=== PATIENT | female | born 1985 | race Caucasian/White ===

== ENCOUNTER 2023-01-14 10:11 | Outpatient (RCR) | payer OTHER, SELFPAY ==
[2022-12-26 08:12] VITALS: BP 114/72; PULSE 70
[2023-01-01 09:06] VITALS: BP 117/68; PULSE 84
[2023-01-08 16:37] VITALS: BP 121/77; PULSE 64
[2023-01-14 10:44] LABS: Creatinine Urine 304.5 mg/dL; Total Protein Urine Random 37 mg/dL; Ur Ttl Prot Creatinine Ratio 0.12 mg/mg (0-0.20)
[2023-01-14 10:45] LABS: Alanine Aminotransferase 20 U/L (6-35); Alkaline Phosphatase 147 U/L (38-126); Anion Gap 10 mmol/L (8-16); Aspartate Amino Transferase 29 U/L (14-36); Bilirubin,Total 0.6 mg/dL (0.2-1.3); Blood Urea Nitrogen 8 mg/dL (7-17); Calcium 9.6 mg/dL (8.4-10.2); Carbon Dioxide 23 mmol/L (22-30); Chloride 101 mmol/L (98-107); Estimated Glomerular Filt Rate > 60; Glucose 116 mg/dL (65-110); Potassium 3.9 mmol/L (3.4-5.0); Sodium 134 mmol/L (137-145); Uric Acid 5.8 mg/dL (2.5-7.5)
[2023-01-14 10:48] LABS: Appearance Urine Cloudy (Clear); Bacteria Urine Rare /hpf; Bilirubin Urine 1+ (Negative); Blood Urine Negative (Negative); Color Urine Dark Yellow (Yellow); Glucose Urine UA Negative (Negative); Ketones Urine 2+ mg/dL (Negative); Leukocyte Esterase Ur 1+ LEU/UL (NEGATIVE); Need Manual Microscopic Need Manual; Nitrate Urine Negative (Negative); Protein Urine 2+ mg/dL (Negative); RBC Urine 0-2 /hpf (0-2); Specific Grav Ur 1.024 (1.001-1.035); Squamous Epithelial Cell Urine Few /hpf (Few); pH Urine 6.5 (5.0-9.0)
[2023-01-14 10:51] VITALS: BP 126/89; PULSE 56
[2023-01-14 10:53] LABS: Basophils Percent Auto 0.4 % (0.2-1.2); Eosinophils Absolute Auto 0.1 K/mm3 (0-0.3); Eosinophils Percent Auto 0.5 % (0-4.4); Hematocrit 40.3 % (37.0-47.0); Hemoglobin 13.2 g/dL (12.0-15.0); Immature Granulocyte Absolute 0.02 K/mm3 (0.00-0.031); Immature Granulocyte Percent A 0.2 % (0-0.5); Lymphocytes Percent Auto 22.6 % (18.3-44.2); Mean Corpuscular HGB Conc 32.8 g/dl (32-36); Mean Corpuscular Hemoglobin 29.2 pg (26-34); Mean Corpuscular Volume 89.2 fl (80-100); Mean Platelet Volume 10.7 fl (7.4-10.4); Monocytes Absolute Auto 0.6 K/mm3 (0.1-0.6); Monocytes Percent Auto 5.9 % (2.6-8.5); Neutrophils Absolute Auto 7.2 K/mm3 (1.3-6.7); Neutrophils Percent Auto 70.4 % (45.5-73.1); Platelet Count Result 233 k/mm3 (150-375); Red Blood Count 4.52 M/mm3 (4.2-5.4); White Blood Count 10.2 K/mm3 (4.5-10.0)
[2023-01-14 11:10] LABS: WBC Urine 0-5 /hpf (0-3)
[2023-01-14 11:11] LABS: Add Urine Microscopic? YES
--- NOTE | 2023-01-14 11:14 | PC.NURSE ---
Dr. Roxane Collins updated with pts labs and blood pressures. okay with pt going home and seeing her in the office next week.
--- NOTE | 2023-01-14 11:16 | PC.NURSE ---
pt seen in the office today. Pt denies headaches, no blurred visions and no pain at this time. Pt reports her blood pressure was elevated in the office but better when he rechecked.
== END 2023-03-26 23:59 | disposition home or self-care (01) ==
LOC: ANHOBOP 10:11
PROVIDERS: Visit Provider Obstetrics & Gynecology
DX: O24.419 Gestational diabetes mellitus in pregnancy, unspecified control (principal); Z3A.34 34 weeks gestation of pregnancy
CPT/HCPCS: 36415; 59025; 80053; 81001; 82570; 84156; 84550; 85025; 87086

== ENCOUNTER 2023-01-21 05:10 | Inpatient (IN) | payer OTHER, SELFPAY ==
[2023-01-21] VITALS (136 sets, daily range): BP systolic 108–155; BP diastolic 59–105; PULSE 54–120; RESP 16–18; TEMP 36.2–36.6; O2SAT 79–100; BMI 35.7
--- NOTE | 2023-01-21 05:44 | LDADM ---
This patient, Lauren Eastman, was admitted to Labor/Delivery/Recovery 105 on 01/21/23 at 05:10. Plans for labor, pain management and were discussed with patient. Patient/family oriented to hospital policies and general routines including ID bracelet, bed and alarms, visiting hours, pain management, procedures, bathroom and other care routines, personal items, smoking policy, room service/diet and guest tray routines, security routines, and visiting hours. Patient/Family are encouraged to report perceived risks to care and to ask questions if they do not understand what they are told or what they should do. See OBIX for further documentation.
[2023-01-21 05:54] LABS: Basophils Absolute Auto 0.1 K/mm3 (0.0-0.1); Basophils Percent Auto 0.5 % (0.2-1.2); Eosinophils Absolute Auto 0.1 K/mm3 (0-0.3); Hematocrit 37.9 % (37.0-47.0); Hemoglobin 12.6 g/dL (12.0-15.0); Immature Granulocyte Absolute 0.02 K/mm3 (0.00-0.031); Immature Granulocyte Percent A 0.2 % (0-0.5); Lymphocytes Percent Auto 24.1 % (18.3-44.2); Mean Corpuscular HGB Conc 33.2 g/dl (32-36); Mean Corpuscular Hemoglobin 29.2 pg (26-34); Mean Corpuscular Volume 87.9 fl (80-100); Mean Platelet Volume 10.2 fl (7.4-10.4); Monocytes Absolute Auto 0.6 K/mm3 (0.1-0.6); Monocytes Percent Auto 6.4 % (2.6-8.5); Neutrophils Absolute Auto 6.5 K/mm3 (1.3-6.7); Neutrophils Percent Auto 67.8 % (45.5-73.1); Platelet Count Result 229 k/mm3 (150-375); Red Blood Count 4.31 M/mm3 (4.2-5.4); Red Cell Distribution Width 12.7 % (11.5-14.5); White Blood Count 9.5 K/mm3 (4.5-10.0)
--- NOTE | 2023-01-21 05:59 | WPDANESEPP ---
Anes - Eval Pre Procedure Procedure: labor epidural Date/Time: 01/21/23 05:59 Surgeon: nisha Preop Diagnosis: pain during labor Pre Op Diagnosis: IOL Patient Data Age: 37 Gender: F Height: 1.75 m Weight: 109.769 kg Last Vital Signs Pulse 65 01/21/23 05:46 BP 129/85 01/21/23 05:46 O2 Del Method Room Air 01/21/23 05:44 Allergies Allergy/AdvReac Type Severity Reaction Status Date / Time No Known Allergies Allergy Verified 01/08/23 16:00 Home Medications Medication Instructions Recorded Confirmed Type glyburide 5 mg tablet 5 mg PO QACDINNER 01/01/23 01/08/23 History omega 6-nwc-azu-fish oil 300 1 cap PO DAILY 01/01/23 01/08/23 History mg-1,000 mg capsule (Fish Oil) vit no.95-ferrous 1 tablet PO DAILY 01/01/23 01/08/23 History fumarate 28 mg-folic acid 800 mcg tablet () Laboratory Tests 01/21/23 05:40 WBC 9.5 K/mm3 (4.5-10.0) RBC 4.31 M/mm3 (4.2-5.4) Hgb 12.6 g/dL (12.0-15.0) Hct 37.9 % (37.0-47.0) MCV 87.9 fl (80-100) MCH 29.2 pg (26-34) MCHC 33.2 g/dl (32-36) RDW 12.7 % (11.5-14.5) Plt Count 229 k/mm3 (150-375) MPV 10.2 fl (7.4-10.4) Immature Gran % (Auto) 0.2 % (0-0.5) Neut % (Auto) 67.8 % (45.5-73.1) Lymph % (Auto) 24.1 % (18.3-44.2) [place] % (Auto) 6.4 % (2.6-8.5) Eos % (Auto) 1.0 % (0-4.4) Baso % (Auto) 0.5 % (0.2-1.2) Lymph # (Auto) 2.30 K/mm3 (0.9-3.2) [place] # (Auto) 0.6 K/mm3 (0.1-0.6) Eos # (Auto) 0.1 K/mm3 (0-0.3) Baso # (Auto) 0.1 K/mm3 (0.0-0.1) Abs Immat Gran (auto) 0.02 K/mm3 (0.00-0.031) Absolute Neuts (auto) 6.5 K/mm3 (1.3-6.7) Absolute Nucleated RBC 0.0 K/mm3 (0.0-0.012) Nucleated RBC % 0.0 % (0.0-0.2) Sodium Pending Potassium Pending Chloride Pending Carbon Dioxide Pending Anion Gap Pending BUN Pending Creatinine Pending Estim Creat Clear Calc Pending Estimated GFR Pending Glucose Pending Calcium Pending Total Bilirubin Pending AST Pending ALT Pending Alkaline Phosphatase Pending Total Protein Pending Albumin Pending RPR Pending Patient hx anesthesia problems: none Family hx anesthesia problems: none Results Review: All pre-operative results and documents have been reviewed as part of the pre-operative evaluation. [facility] Past Medical History Medical History (Updated 01/21/23 @ 06:00 by Karen Graham CRNA) Diabetes IUP (intrauterine ), incidental Surgical History Surgical History S/P ACL surgery 2005 Family History Family History Father Alcoholism Hypertension Heart disease Grandparent Diabetes mellitus Lung cancer Social History Social History Smoking status: Former smoker Tobacco type: cigarettes Second hand tobacco smoke exposure: No Alcohol intake: current Substance use: never Lack of Transportation: No Lack of Food: Never True Current Housing: I Have Housing Concerned About Future Housing: No Difficulty Paying Gas/Electric Bills: No Difficulty Paying for Meds: No Currently Unemployed: No Education: Master's Degree or Higher Difficulty w/ Childcare or Family Care: No Spiritual care concerns: No Exam Day of Procedure 01/21/23 05:59
[2023-01-21] MEDS: LACTATED RINGERS 1,000 ML 125 ML IV CONT ×2 (06:05→07:54)
[2023-01-21] MEDS: OXYTOCIN 30 UNITS/NS 500 ML 30 UNITS/500 ML BAG 6 UNITS IV CONT (06:06)
[2023-01-21 06:10] LABS: Alanine Aminotransferase 23 U/L (6-35); Albumin Level 3.6 g/dL (3.5-5.1); Alkaline Phosphatase 145 U/L (38-126); Anion Gap 9 mmol/L (8-16); Aspartate Amino Transferase 36 U/L (14-36); Bilirubin,Total 0.4 mg/dL (0.2-1.3); Blood Urea Nitrogen 8 mg/dL (7-17); Carbon Dioxide 20 mmol/L (22-30); Chloride 105 mmol/L (98-107); Estimated CRCL calculation 147 ml/min; Estimated Glomerular Filt Rate > 60; Glucose 126 mg/dL (65-110); Potassium 3.8 mmol/L (3.4-5.0); Sodium 134 mmol/L (137-145)
--- NOTE | 2023-01-21 06:34 | PM.IMHP ---
H&P: HPI History of Present Illness Date/Time: 01/21/23 06:34 Chief Complaint: Gestational hypertension at term Narrative: 37-year-old 1 para 0 with a last menstrual period of 04/19/2022, EDC of 02/03/2023, presents at 38 weeks gestation for induction of labor secondary to elevated blood pressures. Her was complicated by an abnormal 1hour GTT and 2/4 abnormals on her 3 hour. Her sugars have been well controlled her blood pressure is elevated and PIH labs to be drawn she denies headache or blurred vision PMFSH Past Medical History Medical History Diabetes IUP (intrauterine ), incidental Surgical History Surgical History S/P ACL surgery 2006 Family History Family History Father Alcoholism Hypertension Heart disease Grandparent Diabetes mellitus Lung cancer Social History Social History Smoking status: Former smoker Tobacco type: cigarettes Second hand tobacco smoke exposure: No Alcohol intake: current Substance use: never Lack of Transportation: No Lack of Food: Never True Current Housing: I Have Housing Concerned About Future Housing: No Difficulty Paying Gas/Electric Bills: No Difficulty Paying for Meds: No Currently Unemployed: No Education: Master's Degree or Higher Difficulty w/ Childcare or Family Care: No Spiritual care concerns: No Meds Home Medications and Allergies Home Medications Medication Instructions Recorded Confirmed Type glyburide 5 mg tablet 5 mg PO QACDINNER 01/01/23 01/08/23 History omega 2-uee-ski-fish oil 300 1 cap PO DAILY 01/01/23 01/08/23 History mg-1,000 mg capsule (Fish Oil) vit no.95-ferrous 1 tablet PO DAILY 01/01/23 01/08/23 History fumarate 28 mg-folic acid 800 mcg tablet () Allergies Allergy/AdvReac Type Severity Reaction Status Date / Time No Known Allergies Allergy Verified 01/08/23 16:00 Vital Signs Vital Signs - 24 hr 01/21/23 05:39 01/21/23 05:46 01/21/23 06:01 Temperature 97.3 F L Pulse Rate 69 65 67 Respiratory Rate 16 Blood Pressure 132/78 129/85 136/81 Pulse Oximetry Oxygen Delivery 01/21/23 06:16 01/21/23 06:25 01/21/23 06:30 Temperature Pulse Rate 62 Respiratory Rate Blood Pressure 143/76 H Pulse Oximetry 97 97 Oxygen Delivery 01/21/23 06:31 01/21/23 05:44 Temperature Pulse Rate 69 Respiratory Rate Blood Pressure 149/90 H Pulse Oximetry Oxygen Delivery Room Air Exam Const: General: cooperative, healthy appearing and comfortable Nutritional Appearance: average body habitus Orientation/consciousness: oriented to person, oriented to place and oriented to time HENMT: Head: normal to inspection Resp: Effort & Inspection: normal respiratory effort Cardio: Rate: regular rate Rhythm: regular rhythm Heart sounds: S1 normal heart sound present and S2 normal heart sound present GI: Inspection: normal to inspection ( gravid soft uterus) : External Female Exam: normal external appearance Speculum Exam - Vagina: normal appearance of the vagina Speculum Exam - Cervix: normal appearance of the cervix ( cervix 3.5/80/1. AROM clear. FHTs reassuring. Internals placed) H&P: Results Labs Labs: Short CBC 01/21/23 Range/Units 05:40 WBC 9.5 (4.5-10.0) K/mm3 Hgb 12.6 (12.0-15.0) g/dL Hct 37.9 (37.0-47.0) % Plt Count 229 (150-375) k/mm3 BMP 01/21/23 05:40 Sodium 134 L Potassium 3.8 Chloride 105 Carbon Dioxide 20 L BUN 8 Creatinine 0.60 L Glucose 126 H Calcium 9.0 Liver Function 01/21/23 Range/Units 05:40 Total Bilirubin 0.4 (0.2-1.3) mg/dL AST 36 (14-36) U/L ALT 23 (6-35) U/L Alkaline Phosphatase 145 H (38
[2023-01-21 08:46] LABS: Glucose Point of Care 66 mg/dl (65-105)
[2023-01-21 11:15] LABS: Glucose Point of Care 112 mg/dl (65-105)
--- NOTE | 2023-01-21 12:09 | PM.OBPNLAB ---
Pain Control Date/time seen: 01/21/23 12:09 Pain control: tolerating well and epidural Pelvic Exam Dilation (cm): 10 Effacement (%): 100 station: +2 Amniotic membrane status: Leaking
--- NOTE | 2023-01-21 12:42 | PM.OBPRVD ---
OB - Vaginal Delivery Note Procedure Delivery date: 01/21/23 Events: Gestational Hypertension Induction method: AROM Delivery augmentation: Pitocin Delivery monitor: External FHT, Internal FHT and Internal Uterine Route of delivery: Episiotomy description: None Laceration Description: None Quantitative Blood Loss (ml): 60 Anesthesia type: Epidural Disposition: Floor Complications: No immediate complications [place] Baby Date of : 01/21/23 Time of : 12:33 Weeks of gestation at delivery: 38 Infant gender: Male presentation: vertex position: Left Occiput Anterior Placenta delivery description: Spontaneous Cord Vessel Description: 3 Vessels score one minute: 8 score five minutes: 9
--- NOTE | 2023-01-21 12:43 | PM.DS ---
DS: Admitting Diagnosis Discharge Date 01/22/2023 Admitting Diagnosis Term /gestational hypertension DS: Discharge Diagnosis Discharge Diagnosis (1) Gestational diabetes: Code(s): O24.419 - Gestational diabetes mellitus in , unspecified control Status: Acute (2) Gestational hypertension: Code(s): O13.9 - Gestational [-induced] hypertension without significant proteinuria, unspecified trimester Status: Acute (3) Term : Code(s): Z34.90 - Encounter for supervision of normal , unspecified, unspecified trimester Status: Acute DS: Summary Hospital Course Reason for hospitalization: induction of labor at 38 weeks gestation for elevated blood pressures Hospital Course: patient underwent successful induction of labor on 01/21/2023. She had epidural anesthesia. Her hospital course was unremarkable. She remained afebrile. She was up, ambulating, eating regular diet, voiding without difficulty, and generally without complaints. Time Spent with Patient Time attestation: Total time spent providing and/or coordinating discharge services: Exam Const: General: cooperative, healthy appearing and comfortable Nutritional Appearance: average body habitus Orientation/consciousness: oriented to person, oriented to place and oriented to time Resp: Effort & Inspection: normal respiratory effort Cardio: Rate: regular rate Rhythm: regular rhythm Heart sounds: S1 normal heart sound present and S2 normal heart sound present GI: Inspection: normal to inspection DS: Data Data Completed and Pending Labs on day of discharge: Labs from last 24 hours 01/21/23 01/21/23 01/21/23 11:12 08:44 05:40 WBC 9.5 RBC 4.31 Hgb 12.6 Hct 37.9 MCV 87.9 MCH 29.2 MCHC 33.2 RDW 12.7 Plt Count 229 MPV 10.2 Immature Gran % (Auto) 0.2 Neut % (Auto) 67.8 Lymph % (Auto) 24.1 [place] % (Auto) 6.4 Eos % (Auto) 1.0 Baso % (Auto) 0.5 Lymph # (Auto) 2.30 [place] # (Auto) 0.6 Eos # (Auto) 0.1 Baso # (Auto) 0.1 Abs Immat Gran (auto) 0.02 Absolute Neuts (auto) 6.5 Absolute Nucleated RBC 0.0 Nucleated RBC % 0.0 Sodium 134 L Potassium 3.8 Chloride 105 Carbon Dioxide 20 L Anion Gap 9 BUN 8 Creatinine 0.60 L Estim Creat Clear Calc 147 Estimated GFR > 60 Glucose 126 H POC Capillary Glucose 112 H 66 Calcium 9.0 Total Bilirubin 0.4 AST 36 ALT 23 Alkaline Phosphatase 145 H Total Protein 7.0 Albumin 3.6 RPR Pending Blood Type AB Positive Antibody Screen Negative Discharge Plan Discharge Attending physician on discharge: Marc Melo Discharging Clinician: Marc Melo Patient Disposition: Home, Self-Care Activity: may shower and pelvic rest Diet: heart healthy Patient Instructions: Antibiotic Form Stand Alone Forms: General Discharge Information Follow-up/Referrals: Marc Melo MD [Physician] - Discharge Medications: Continued omega 9-axg-url-fish oil [Fish Oil] 300-1,000 mg Capsule 1 cap PO DAILY PNV cmb#95-ferrous fumarate-FA [] 28 mg iron- 800 mcg Tablet 1 tablet PO DAILY Discontinued glyburide 5 mg Tablet 5 mg PO QACDINNER Date of admission: 01/21/23 05:10 Primary Care Provider: PHYSICIAN,GINGER FARMER Admitting Provider: Marc Melo Attending physician on admission: Marc Melo Condition: Stable
[2023-01-21] MEDS: OXYTOCIN 30 UNITS/NS 500 ML 30 UNITS/500 ML BAG 125 UNITS IV CONT (13:05)
[2023-01-21] MEDS: WITCH HAZEL 40 PADS 1 PAD TOPICAL (14:38)
[2023-01-21] MEDS: BENZOCAINE 20% AER SPR (*SP) 56 GM CAN 1 SPRAY TOPICAL (14:38)
--- NOTE | 2023-01-21 15:51 | OBPPTRN ---
1500 Patient transferred to post room #283 via W/C. Support person present. Oriented to unit, room, information board, rooming in, admission packet and security measures. Patient verbalizes understanding.
[2023-01-22 05:04] LABS: Hematocrit 36.1 % (37.0-47.0)
--- NOTE | 2023-01-22 06:36 | PM.OBPNVD ---
OB - PN: Subj Subjective Date/time seen: 01/22/23 06:36 Patient comments: no complaints and pain well controlled baby status: doing well and nursing well OB - PN: Obj Data Labs 01/22/23 03:19 01/21/23 05:40 Labs: Laboratory Results - last 24 hr 01/21/23 01/21/23 01/21/23 05:40 08:44 11:12 Hgb Hct POC Capillary Glucose 66 112 H Blood Type AB Positive Antibody Screen Negative 01/22/23 03:19 Hgb 12.0 Hct 36.1 L POC Capillary Glucose Blood Type Antibody Screen OB - PN A/P Plan day: 1 Plan: routine care, discharge home and follow up 6 weeks Time Spent With Patient Time: Total time spent is greater than 50% in coordination of care (as documented) at patient's floor/unit and/or counseling patient: Time with patient: less than 15 minutes Exam Const: General: cooperative, healthy appearing and comfortable Nutritional Appearance: average body habitus Orientation/consciousness: oriented to person, oriented to place and oriented to time HENMT: Head: normal to inspection Resp: Effort & Inspection: normal respiratory effort Cardio: Rate: regular rate Rhythm: regular rhythm Heart sounds: S1 normal heart sound present and S2 normal heart sound present GI: Inspection: normal to inspection
[2023-01-22 08:00] VITALS: PULSE 67; RESP 20; O2SAT 100
[2023-01-22] MEDS: DOCUSATE SODIUM 100 MG CAPSULE PO (08:14)
[2023-01-22 08:42] VITALS: BP 148/83; PULSE 67; RESP 20; TEMP 36.4; O2SAT 100
--- NOTE | 2023-01-22 08:56 | WPDANLDPN2 ---
Anes-Prog Note L&D Date/Time: 01/22/23 08:56 Comfortable throughout: labor and delivery Neuraxial method: epidural Epidural/Spinal procedure site: clean & non-tender Neuro status: Neuro function grossly intact. Cardiovascular status: normal Respiratory status: normal Airway patency: baseline Mental status: baseline Post-Op hydration status: normal Vital Signs: Last Vital Signs Temp 97.6 F 01/22/23 08:42 Pulse 67 01/22/23 08:42 Resp 20 01/22/23 08:42 BP 148/83 H 01/22/23 08:42 Pulse Ox 100 01/22/23 08:42 O2 Del Method Room Air 01/21/23 15:00 Pain score (VAS): 0 Post-procedural complaints: none Patient feedback: Patient satisfied with anesthetic care.
[2023-01-22 12:56] VITALS: BP 129/80; PULSE 66; RESP 18; TEMP 36.9; O2SAT 99
--- NOTE | 2023-01-22 14:11 | PC.NURSE ---
Patient viewed the discharge video Mother & Baby Care, The First Two Weeks . Patient was given the opportunity and encouraged to ask questions. Patient verbalized understanding of information shared and has been given the mother/baby guide for home reference.
[2023-01-22] MEDS: TETANUS,DIPHTHERIA,AC PERTUSSIS ADULT (0.5 ML) BOOSTRIX IM (14:12)
--- NOTE | 2023-01-22 16:40 | PC.NURSE ---
[id number] Introductions were made and Mother verbalizes she is able to independently latch with appropriate positioning and alignment. She denies any nipple discomfort, is responsively and has educated herself through online classes. is currently meeting outcomes for weight, output, jaundice, blood sugar and feeding frequencies of 8-12 times in 24 hours. Mother declines any additional assistance or education at this time. Mother is encouraged to call for assistance if her infant doesn?t latch, pain with latching, questions or concerns. Mother voiced understanding of information shared along with the mom/baby guide for an additional resource. Reported to the Primary RN.
[2023-01-22 17:18] LABS: Rapid Plasma Reagin Non-Reactive (NonReactive)
== END 2023-01-22 17:05 | disposition home or self-care (01) | DRG 807 ==
LOC: ANHLDR 12:45 → ANHOB2 15:05
PROVIDERS: Admitting Provider Obstetrics & Gynecology; Visit Provider Obstetrics & Gynecology
DX: O13.4 Gestational [pregnancy-induced] hypertension without significant proteinuria, complicating childbirth (principal); Z37.0 Single live birth; Z3A.38 38 weeks gestation of pregnancy; O24.429 Gestational diabetes mellitus in childbirth, unspecified control
CPT/HCPCS: 36415; 80053; 82948; 85014; 85018; 85025; 86592; 86850; 86900; 86901; 90715; A9270; J2590; J2795; J7120

== ENCOUNTER 2023-04-04 16:30 | Emergency (ER) | payer OTHER, SELFPAY ==
[2023-04-04 16:40] VITALS: BP 126/80; PULSE 65; RESP 18; TEMP 36.9; O2SAT 100
--- NOTE | 2023-04-04 16:48 | ED.WOUNDLAC ---
HPI - Wound/Laceration General Chief Complaint: Wound/Laceration Stated Complaint: Left Hand Finger Laceration Time Seen by Provider: 04/04/23 16:45 Source: patient Mode of arrival: ambulatory Limitations: no limitations History of Present Illness HPI narrative: Lauren is a 37-year-old female patient presenting to the clinic today with complaints of a left hand index finger laceration. She reports she cut it on a bread knife approximately 1.5 hours ago. Bleeding is controlled. Tetanus is up-to-date per patient. Patient is currently . Related Data Home Medications Medication Instructions Recorded Confirmed omega 4-orh-tla-fish oil 300 1 cap PO DAILY 01/01/23 01/08/23 mg-1,000 mg capsule (Fish Oil) vit no.95-ferrous 1 tablet PO DAILY 01/01/23 01/08/23 fumarate 28 mg-folic acid 800 mcg tablet () Allergies Allergy/AdvReac Type Severity Reaction Status Date / Time No Known Allergies Allergy Verified 04/04/23 16:33 Review of Systems Review of Systems: Pertinent positives per HPI. Patient denies any fever, chills, rash, headache, visual changes, dizziness, cough, runny nose, sore throat, shortness of breath, chest pain, palpitations, nausea, vomiting, diarrhea, constipation, abdominal pain, or any urinary issues. [facility] Past Medical History Medical History Diabetes IUP (intrauterine ), incidental Surgical History Surgical History S/P ACL surgery 2006 Family History Family History Father Alcoholism Hypertension Heart disease Grandparent Diabetes mellitus Lung cancer Social History Social History Smoking status: Former smoker Tobacco type: cigarettes Second hand tobacco smoke exposure: No Alcohol intake: current Substance use: never Do You Feel Safe in your Home?: Yes Lack of Transportation: No Lack of Food: Never True Current Housing: I Have Housing Concerned About Future Housing: No Difficulty Paying Gas/Electric Bills: No Difficulty Paying for Meds: No Currently Unemployed: No Education: Master's Degree or Higher Difficulty w/ Childcare or Family Care: No Spiritual care concerns: No Comments At the time of my signature, I reviewed and agree with the nursing past medical, surgical, social, and family history. There is no relevant family history pertinent to the patient complaint. Exam Narrative: General: Well-developed, well nourished, in no apparent distress Head: Normocephalic, atraumatic. Cardio: Regular rate and rhythm, s1 and s2 normal, no murmur appreciated. Resp: Clear to auscultation bilaterally, no rhonchi, rales, wheezing or rubs. Integumentary: [place], warm, and dry, 1cm laceration across the lateral/dorsal aspect of the proximal 2nd phalanx on the left hand Course Course Emergency Course: Portions of this record may have been created with voice recognition software. Level of Care: Express Care Visit Vital Signs Vital signs: Vital Signs Temperature 36.9 C 04/04/23 16:40 Pulse Rate 65 04/04/23 16:40 Respiratory Rate 18 04/04/23 16:40 Blood Pressure 126/80 04/04/23 16:40 Pulse Oximetry 100 04/04/23 16:40 Oxygen Delivery Room Air 04/04/23 16:40 Temperature 36.9 C 04/04/23 16:40 Pulse Rate 65 04/04/23 16:40 Respiratory Rate 18 04/04/23 16:40 Blood Pressure 126/80 04/04/23 16:40 Pulse Oximetry 100 04/04/23 16:40 Oxygen Delivery Room Air 04/04/23 16:40 Vital signs reviewed Procedures Laceration Laceration 1: Date: 04/04/23 Time: 17:00 Site: hand (Index finger left hand) Side (If applicable): left Size (cm): 1 Description: linear Depth: simple, single layer
== END 2023-04-04 17:15 | disposition home or self-care (01) ==
PROVIDERS: Emergency Provider Nurse Practitioner Family; PCP Nurse Practitioner
DX: S61.211A Laceration without foreign body of left index finger without damage to nail, initial encounter (principal); W26.0XXA Contact with knife, initial encounter; Z87.891 Personal history of nicotine dependence; E11.9 Type 2 diabetes mellitus without complications
CPT/HCPCS: 12001; 99213; G0463

== ENCOUNTER 2024-08-25 11:49 | Inpatient (IN) | payer OTHER, SELFPAY ==
[2024-08-25] VITALS (48 sets, daily range): BP systolic 101–145; BP diastolic 55–86; PULSE 56–77; RESP 16–18; TEMP 36.2–36.6; O2SAT 100; BMI 35.8
--- OUTSIDE RECORDS SUMMARY | 2024-08-25 12:01 | XMS_ITS | Clinical Summary ---
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 Gender Identity Not on file Sexual Orientation Not on file Plan of Treatment Health Maintenance Due Date Last Done Comments Hepatitis C Virus (HCV) Screening 1987 TdaP Immunization 1987 Hepatitis B Immunization (1 of 3 - 19+ 3-dose series) 10/05/2006 Pap Smear 10/05/2008 Cervical Cancer Screening (CCS) 10/05/2017 HPV/Cotest 10/05/2017 Influenza Immunization (#1) 2023 SARS-COV-2 Immunization ( season) 2023 Respiratory Syncytial Virus (RSV) Immunization (Adult) (1 - 1-dose 75+ series) 10/05/2062 Meningococcal Immunization (ACWY) Aged Out No longer eligible based on patient's age to complete this topic Pneumococcal Immunization Combined Aged Out No longer eligible based on patient's age to complete this topic Rotavirus Immunization Aged Out No lo nger eligible based on patient's age to complete this topic
--- OUTSIDE RECORDS SUMMARY | 2024-08-25 12:02 | XMS_ITS | Patient Health Record ---
Author Organization [facility] Address [address] [place] [address] Care Team Providers Care Warping Mill Operator Name Role Phone --, -- Primary Care Provider Unavailabl e Reason For Referral No Information Medications Medication SIG (Take, Route, Frequency, Duration) Notes Start Date End Date Status Phentermine HCl 15 MG 1 capsule Orally O nce a day Active XIAO 3-0.02 MG 1 tablet Orally Once a day for 84 days 03/09/2020 Active [place] Active Femara 2.5 MG TAKE 1 TABLET BY ELLIOTT TH EVERY DAY ON DAYS 5 THOUGH 9 for 5 Not-Taking Hyoscyamine Sulfate 0.125 MG 1 tablet as needed Orally every 4 hrs PRN Not-Taking Sprintec 28 0.25-35 MG-MCG 1 tablet Orally Once a day for 90 days Not-Taking Probiotic Not-Taking Sprintec 28 0.25-35 MG-MCG 1 tablet Orally Once a day for 84 days 03/02/2020 Active metFORMIN HCl Not-Ta maximino Social History Tobacco Use: Social History Observation Description Date Details (start date - stop date) Never Smoker NA - NA Alcohol Screen Question Answer Notes Did you have a drink containing alcohol in the p ast year? Yes Points 0 Interpretation Negative Sexual History Question Answer Notes Had sex in the past 12 months (vaginal, oral, or anal)? Yes with Men only Current tobacco user? Question Answer Notes Are you a current smoker, former smoker, or have never smoked? nonsmoker Colonoscopy/Colon Cancer Screening Question Answer Notes Date: never Date of last Mammogram Question Answer Notes Date: never Date of last PAP Smear: Question Answer Notes Date: 02/26/2018 neg Problems Problem Type SNOMED Code ICD Code Onset Dates Problem Status W/U Status Risk Notes Problem 12518516 Anovulation (N97.0) Active confirmed Problem 51024096 Irregular periods (N92.6) Active confirmed Plan Of Treatment Pending Test Test Name Order Date Pap Lb, rfx HPV all pth (19920522) 015 Pap IG, w/reflex to HPV HR DNA when ASC- U (146008) 02/08/2016 Insurance Providers Payer Name Payer Address Payer Phone Subscriber Number Group Number Insured Name Patient Relationship to Insured Coverage Start Date Coverage End Date [facility] [address] [address] [place] [address] [phone] [id number] Lauren Eastman Self - patient is the insured Medical (General) History Medical History History ICD Code diabetic Surgical History Surgery Date(Month/Year) ACL reconstruction 2006 Hospitalization History Reason Date(Month/Year) see above
--- NOTE | 2024-08-25 12:30 | PC.NURSE ---
1212- monitor test completed. 1215- U/s transducer and toco transducer applied. 1230- Dr. Roxane Collins informed of this 35 1/7 wk here with SROM of clear fluid since 1115 this am. Informed pt having contractions, but not really feeling them yet. Orders received to admit, Ampicillin for unknown GBS and , low dose Pitocin if needed.
--- NOTE | 2024-08-25 12:35 | P.HP_ITS ---
H&P: HPI History of Present Illness Date/Time: 08/25/24 12:35 Chief Complaint: Ruptured membranes at term Narrative: This is 38-year-old 2 para 1 whose last menstrual period was 12/27/2023, EDC is 09/28/2024, confirmed by 11 week ultrasound presents at 3517 weeks gestation with spontaneous rupture membranes. She is a gestational diabetic. She has been diet controlled. She was moved up to glyburide 5mg at about 32 weeks but sugars have been well controlled her rupture membranes test is positive group B strep screen is pending Review of Systems Review of Systems: Pertinent positives per HPI. Patient denies any fever, chills, rash, headache, visual changes, dizziness, cough, runny nose, sore throat, shortness of breath, chest pain, palpitations, nausea, vomiting, diarrhea, constipation, abdominal pain, or any urinary issues. [facility] Past Medical History Medical History IUP (intrauterine ), incidental Diabetes Surgical History Surgical History S/P ACL surgery 2005 Family History Family History Father Alcoholism Hypertension Heart disease Grandparent Diabetes mellitus Lung cancer Social History Social History Smoking status: Former smoker Tobacco type: cigarettes Second hand tobacco smoke exposure: No Alcohol intake: current Substance use: never Do You Feel Safe in your Home?: Yes Lack of Transportation: No Lack of Food: Never True Current Housing: I Have Housing Concerned About Future Housing: No Difficulty Paying Gas/Electric Bills: No Difficulty Paying for Meds: No Currently Unemployed: No Education: Master's Degree or Higher Difficulty w/ Childcare or Family Care: No Spiritual care concerns: No Meds Home Medications and Allergies Home Medications ?Medication ?Instructions ?Recorded ?Confirmed ?Type omega 7-jqv-msw-fish oil 300 1 cap PO DAILY 01/01/23 05/02/23 History mg-1,000 mg capsule (Fish Oil) vit no.95-ferrous 1 tablet PO DAILY 01/01/23 05/02/23 History fumarate 28 mg-folic acid 800 mcg tablet () triamcinolone acetonide 0.1 % 1 applic topical BID PRN itching 05/02/23 05/02/23 Rx topical cream #15 grams Allergies Allergy/AdvReac Type Severity Reaction Status Date / Time No Known Allergies Allergy Verified 05/02/23 11:46 Vital Signs Vital Signs - 24 hr 08/25/24 12:19 08/25/24 12:30 Pulse Rate 76 64 Blood Pressure 128/78 129/70 Exam Const: General: cooperative, healthy appearing and comfortable Nutritional Appearance: average body habitus Orientation/consciousness: oriented to person, oriented to place and oriented to time Resp: Effort & Inspection: normal respiratory effort Cardio: Rate: regular rate Rhythm: regular rhythm Heart sounds: S1 normal heart sound present and S2 normal heart sound present GI: Inspection: normal to inspection (Gravid soft uterus) : External Female Exam: normal external appearance Speculum Exam - Vagina: normal appearance of the vagina Speculum Exam - Cervix: normal a ppearance of the cervix (ROM Plus is positive. FHTs reassuring) Assessment and Plan Assessment and plan (1) Gestational diabetes: Code(s): O24.419 - Gestational diabetes mellitus in , unspecified control Status: Acute (2) Premature rupture of membranes (PROM) at term with onset of labor after 24 hours, antepartum: Code(s): O42.12 - Full-term premature rupture of membranes, onset of labor more than 24 hours following rupture Status: Acute (3) Current with history of pre-term labor: Code(s): O09.219 - Supervision of with history of pre-term labor, unspecified trimester Status: Acute Plan Check blood sugars. Spontaneous vaginal is expected. She is an epidural candidate
[2024-08-25 14:18] LABS: Hematocrit 38.0 % (37.0-47.0); Hemoglobin 12.5 g/dL (12.0-15.0); Immature Granulocyte Percent A 0.5 % (0-0.5); Lymphocytes Absolute Auto 1.70 K/mm3 (0.9-3.2); Mean Corpuscular HGB Conc 32.9 g/dl (32-36); Mean Corpuscular Hemoglobin 28.7 pg (26-34); Mean Corpuscular Volume 87.4 fl (80-100); Nucleated Red Blood Cells Absolute Auto 0.000 K/mm3 (0.0-0.012); Nucleated Red Blood Cells Perc 0.0 % (0.0-0.2); Platelet Count Result 223 k/mm3 (150-375); Red Blood Count 4.35 M/mm3 (4.2-5.4); White Blood Count 10.4 K/mm3 (4.5-10.0)
[2024-08-25] MEDS: LACTATED RINGERS 1,000 ML 125 ML IV CONT ×3 (14:25→22:53)
[2024-08-25] MEDS: AMPICILLIN SODIUM 2 GM in SODIUM CHLORIDE 0.9% IV 100 ML 200 ML IVPB (14:26)
[2024-08-25] MEDS: OXYTOCIN 30 UNITS/NS 500 ML 30 UNITS/500 ML BAG IV CONT (14:30)
--- NOTE | 2024-08-25 14:30 | PC.NURSE ---
Pitocin started at 2 milliunits/min.
--- NOTE | 2024-08-25 15:00 | PC.NURSE ---
Pitocin increased to 4 milliunits/minute.
[2024-08-25 15:10] LABS: Syphilis IgG/IgM Antibody Non-Reactive (Nonreactive)
[2024-08-25 15:19] LABS: HIV 1/2 Ab P24 Ag Result Negative (Negative)
[2024-08-25 15:56] LABS: OBXCEM ROM Plus Positive (Negative)
--- NOTE | 2024-08-25 16:00 | PC.NURSE ---
Pitocin increased to 6 milliunits/minute.
--- NOTE | 2024-08-25 16:16 | PC.NURSE ---
IUPC placed by Dr. Roxane Collins.
--- NOTE | 2024-08-25 16:16 | PM.OBPNLAB ---
Pain Control Date/time seen: 08/25/24 16:16 Pain control: tolerating well and epidural Comments: iupc placed Pelvic Exam Dilation (cm): 3 Effacement (%): 75 station: -2 Amniotic membrane status: Leaking
--- NOTE | 2024-08-25 16:35 | LDADM ---
This patient, Lauren Eastman, was admitted to Labor/Delivery/Recovery 106 on 08/25/24 at 13:38. Plans for labor, pain management and were discussed with patient. Patient/family oriented to hospital policies and general routines including ID bracelet, bed and alarms, visiting hours, pain management, procedures, bathroom and other care routines, personal items, smoking policy, room service/diet and guest tray routines, security routines, and visiting hours. Patient/Family are encouraged to report perceived risks to care and to ask questions if they do not understand what they are told or what they should do. See OBIX for further documentation.
[2024-08-25] MEDS: AMPICILLIN SODIUM 1 GM in SODIUM CHLORIDE 0.9% IV 50 ML 100 ML IVPB ×2 (18:17→22:25)
--- OUTSIDE RECORDS SUMMARY | 2024-08-25 18:27 | XMS_ITS | Clinical Summary ---
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
--- NOTE | 2024-08-25 18:30 | PC.NURSE ---
[id number]: FHT 125 CTX 1.5-2.5 min apart MVU 255
--- NOTE | 2024-08-25 18:41 | P.PNAN_ITS ---
Anes - Eval Pre Procedure Procedure: labor epidural Date/Time: 08/25/24 18:41 Surgeon: audrey collins Preop Diagnosis: pain during labor Pre Op Diagnosis: leaking Patient Data Age: 38 Gender: F Height: 1.75 m Weight: 110 kg Last Vital Signs Pulse 69 08/25/24 18:30 BP 127/75 08/25/24 18:30 O2 Del Method Room Air 08/25/24 16:00 Allergies Allergy/AdvReac Type Severity Reaction Status Date / Time No Known Allergies Allergy Verified 08/25/24 16:29 Home Medications ?Medication ?Instructions ?Recorded ?Confirmed ?Type omega 5-xtj-blm-fish oil 300 1 cap PO DAILY 01/01/23 08/25/24 History mg-1,000 mg capsule (Fish Oil) vit no.95-ferrous 1 tablet PO DAILY 01/01/23 08/25/24 History fumarate 28 mg-folic acid 800 mcg tablet () glyburide 5 mg tablet 5 mg PO HS 08/25/24 08/25/24 History Laboratory Tests 08/25/24 08/25/24 08/25/24 12:26 14:02 14:08 WBC 10.4 H K/mm3 (4.5-10.0) RBC 4.35 M/mm3 (4.2-5.4) Hgb 12.5 g/dL (12.0-15.0) Hct 38.0 % (37.0-47.0) MCV 87.4 fl (80-100) MCH 28.7 pg (26-34) MCHC 32.9 g/dl (32-36) RDW 12.8 % (11.5-14.5) Plt Count 223 k/mm3 (150-375) MPV 10.7 H fl (7.4-10.4) Immature Gran % (Auto) 0.5 % (0-0.5) Neut % (Auto) 77.5 H % (45.5-73.1) Lymph % (Auto) 16.3 L % (18.3-44.2) [place] % (Auto) 5.0 % (2.6-8.5) Eos % (Auto) 0.5 % (0-4.4) Baso % (Auto) 0.2 % (0.2-1.2) Lymph # (Auto) 1.70 K/mm3 (0.9-3.2) [place] # (Auto) 0.5 K/mm3 (0.1-0.6) Eos # (Auto) 0.1 K/mm3 (0-0.3) Baso # (Auto) 0.0 K/mm3 (0.0-0.1) Abs Immat Gran (auto) 0.05 H K/mm3 (0.00-0.031) Absolute Neuts (auto) 8.1 H K/mm3 (1.3-6.7) Absolute Nucleated RBC 0.000 K/mm3 (0.0-0.012) Nucleated RBC % 0.0 % (0.0-0.2) POC Capillary Glucose 76 mg/dl (65-105) Membranes Rupture Rom plus positive (Negative) Syphilis IgG/IgM Ab Non-reactive (Nonreactive) HIV 1&2 Ab/P24 Ag 4thGn Negative (Negative) Blood Type AB Positive Antibody Screen Negative 08/25/24 16:28 WBC RBC Hgb Hct MCV MCH MCHC RDW Plt Count MPV Immature Gran % (Auto) Neut % (Auto) Lymph % (Auto) [place] % (Auto) Eos % (Auto) Baso % (Auto) Lymph # (Auto) [place] # (Auto) Eos # (Auto) Baso # (Auto) Abs Immat Gran (auto) Absolute Neuts (auto) Absolute Nucleated RBC Nucleated RBC % POC Capillary Glucose 106 H mg/dl (65-105) Membranes Rupture Syphilis IgG/IgM Ab HIV 1&2 Ab/P24 Ag 4thGn Blood Type Antibody Screen Patient hx anesthesia problems: none Family hx anesthesia problems: none Results Review: All pre-operative results and documents have been reviewed as part of the pre- operative evaluation. [facility] Past Medical History Medical History IUP (intrauterine ), incidental Diabetes Surgical History Surgical History S/P ACL surgery 2006 Family History Family History Father Alcoholism Hypertension Heart disease Grandparent Diabetes mellitus Lung cancer Social History Social History Smoking status: Never smoker Tobacco type: cigarettes Second hand tobacco smoke exposure: No Alcohol intake: current Substance use: never Do You Feel Safe in your Home?: Yes Lack of Transportation: No Lack of Food: Never True Current Housing: I Have Housing Concerned About Future Housing: No Difficulty Paying Gas/Electric Bills: No Difficulty Paying for Meds: No Currently Unemployed: No Education: Master's Degree or Higher Difficulty w/ Childcare or Family Care: No Spiritual care concerns: No Exam Day of Procedure 08/25/24 18:41
--- NOTE | 2024-08-25 21:01 | PM.OBPNLAB ---
Pain Control Date/time seen: 08/25/24 21:01 Pain control: tolerating well and epidural Pelvic Exam Dilation (cm): 5 Effacement (%): 75 station: -2 Amniotic membrane status: Leaking Contractions Monitor mode: Internal
[2024-08-26] VITALS (36 sets, daily range): BP systolic 104–148; BP diastolic 43–106; PULSE 56–86; RESP 16–18; TEMP 36.4–36.8; O2SAT 98–100
[2024-08-26] MEDS: AMPICILLIN SODIUM 1 GM in SODIUM CHLORIDE 0.9% IV 50 ML 100 ML IVPB (03:54)
--- NOTE | 2024-08-26 05:51 | PM.OBPRVD ---
OB - Vaginal Delivery Note Procedure Delivery date: 08/26/24 Events: Premature Rupture of Membranes Induction method: None Delivery augmentation: Pitocin Delivery monitor: External FHT and External Uterine Route of delivery: Episiotomy description: None Laceration Description: None Specimen: No Quantitative Blood Loss (ml): 62 Anesthesia type: Epidural Disposition: Floor Baby Date of : 08/26/24 Time of : 05:16 Gestational Age by Date: 35 Infant gender: Male presentation: vertex Placenta delivery description: Spontaneous Cord Vessel Description: 3 Vessels score one minute: 8 score five minutes: 9 Narrative: Patient was admitted on 08/25/2024 with spontaneous rupture membranes at 35 weeks she underwent Veress delivery spontaneously in bed. The placenta was then delivered spontaneously. The placenta delivered intact spontaneously. Twenty of Pitocin placed IV to help firm the uterus no tears or lacerations were noted. Blood loss was 62cc
--- NOTE | 2024-08-26 05:55 | P.DS_ITS ---
DS: Admitting Diagnosis Discharge Date 08/28/2024 Admitting Diagnosis Pre term rupture membranes DS: Discharge Diagnosis Discharge Diagnosis (1) Premature rupture of membranes (PROM) at term with onset of labor after 24 hours, antepartum: Code(s): O42.12 - Full-term premature rupture of membranes, onset of labor more than 24 hours following rupture Status: Acute DS: Summary Hospital Course Reason for hospitalization: Patient was admitted at 35 weeks gestation with rupture of membranes at 35 weeks she underwent spontaneous vaginal delivery on 08/26/2024 early a.m. Hospital Course: Patient's hospital course remained reassuring and there is she was up, voiding without difficulty, eating regular diet, ambulating, and generally without complaints. Time Spent with Patient Time attestation: Total time spent providing and/or coordinating discharge services: Exam Const: General: cooperative, healthy appearing and comfortable Nutritional Appearance: average body habitus Orientation/consciousness: oriented to person, oriented to place and oriented to time Resp: Effort & Inspection: normal respiratory effort Cardio: Rate: regular rate Rhythm: regular rhythm Heart sounds: S1 normal heart sound present and S2 normal heart sound present GI: Inspection: normal to inspection (Gravid soft uterus) : External Female Exam: normal external appearance Speculum Exam - Vagina: normal appearance of the vagina Speculum Exam - Cervix: normal appearance of the cervix (ROM Plus is positive. FHTs reassuring) DS: Data Data Completed and Pending Labs on day of discharge: Labs from last 24 hours 08/26/24 08/25/24 08/25/24 03:01 23:32 19:34 WBC RBC Hgb Hct MCV MCH MCHC RDW Plt Count MPV Immature Gran % (Auto) Neut % (Auto) Lymph % (Auto) [place] % (Auto) Eos % (Auto) Baso % (Auto) Lymph # (Auto) [place] # (Auto) Eos # (Auto) Baso # (Auto) Abs Immat Gran (auto) Absolute Neuts (auto) Absolute Nucleated RBC Nucleated RBC % POC Capillary Glucose 88 80 122 H Membranes Rupture Syphilis IgG/IgM Ab HIV 1&2 Ab/P24 Ag 4thGn Blood Type Antibody Screen 08/25/24 08/25/24 08/25/24 16:28 14:08 14:02 WBC 10.4 H RBC 4.35 Hgb 12.5 Hct 38.0 MCV 87.4 MCH 28.7 MCHC 32.9 RDW 12.8 Plt Count 223 MPV 10.7 H Immature Gran % (Auto) 0.5 Neut % (Auto) 77.5 H Lymph % (Auto) 16.3 L [place] % (Auto) 5.0 Eos % (Auto) 0.5 Baso % (Auto) 0.2 Lymph # (Auto) 1.70 [place] # (Auto) 0.5 Eos # (Auto) 0.1 Baso # (Auto) 0.0 Abs Immat Gran (auto) 0.05 H Absolute Neuts (auto) 8.1 H Absolute Nucleated RBC 0.000 Nucleated RBC % 0.0 POC Capillary Glucose 106 H 76 Membranes Rupture Syphilis IgG/IgM Ab Non-reactive HIV 1&2 Ab/P24 Ag 4thGn Negative Blood Type AB Positive Antibody Screen Negative 08/25/24 12:26 WBC RBC Hgb Hct MCV MCH MCHC RDW Plt Count MPV Immature Gran % (Auto) Neut % (Auto) Lymph % (Auto) [place] % (Auto) Eos % (Auto) Baso % (Auto) Lymph # (Auto) [place] # (Auto) Eos # (Auto) Baso # (Auto) Abs Immat Gran (auto) Absolute Neuts (auto) Absolute Nucleated RBC Nucleated RBC % POC Capillary Glucose Membranes Rupture Rom plus positive Syphilis IgG/IgM Ab HIV 1&2 Ab/P24 Ag 4thGn Blood Type Antibody Screen Discharge Plan Discharge Attending physician on discharge: Marc Melo Discharging Clinician: Marc Melo Patient Disposition: Home Activity: may shower, no straining and pelvic rest Diet: heart healthy Wound Care Instructions: follow printed instructions Patient Instructions: Antibiotic Form Patient Language: Albanian Stand Alone Forms: General Discharge Information Follow-up/Referrals: Marc Melo MD [Physician] - Discharge Medications: Discontinued glyburide 5 mg tablet 5 mg PO HS No Action omega 8-pbx-ekw-fish oil [Fish Oil] 300-1,000 mg Capsule 1 cap PO DAILY PNV no.95-ferrous fumarate-FA [] 28 mg iron- 800 mcg Tablet 1 tablet PO DAILY Date of admission: 08/25/24 11:49 Primary Care Provider: Mariana Krishnan Admitting Provider: Marc Melo Attending physician on admission: Marc Melo Condition: Stable
[2024-08-26] MEDS: OXYTOCIN 30 UNITS/NS 500 ML 30 UNITS/500 ML BAG 125 UNITS IV CONT (06:11)
[2024-08-26] MEDS: IBUPROFEN 600 MG TABLET PO ×2 (07:30→13:32)
[2024-08-26] MEDS: WITCH HAZEL 40 PADS 1 PAD TOPICAL (07:31)
[2024-08-26] MEDS: BENZOCAINE 20% AER SPR (*SP) 56 GM CAN 1 SPRAY TOPICAL (07:31)
--- NOTE | 2024-08-26 10:05 | OBPPTRN ---
Patient transferred to post room #287 via wheelchair. Support person present. Oriented to unit, room, information board, rooming in, admission packet and security measures. Patient verbalizes understanding.
--- NOTE | 2024-08-26 16:37 | PC.NURSE ---
1022 Consulted with patient to assess needs related to . Discussed with mother her successes, concerns and any questions she has. We reviewed working with the , supporting breast, protecting her nipples with an optimal deep latch, good positioning, and good hand washing. Mother concerned with history of low milk supply and that baby is 35 2/7 weeks gestation. She would like to start using the hospital breast pump after she breast feeds to help protect her milk supply. Mother will call CARLOS, RN when she is ready to start pumping. Encouraged understanding the benefits of skin to skin, responding to feeding cues, frequencies of feeding 8-12 times in 24 hours (approximately 2-3 hours), duration of feedings, milk production, intake/output feeding sheet and signs of adequate intake encouraging swallowing at the breast. Reviewed positioning and alignment, supporting breast, off-centered (asymmetrical latch) and leading with the chin with big, open, wide gape. Infant latched optimally to the [left] breast in [football] position. Education given to the mother of how to visualize the suckling (with good rocking jaw motion) swallows (dropping of the lower jaw) and how to listen for drinking at the breast (the ka sound). The infant was [able] to maintain latch without discomfort to mother. Nipple care reviewed with optimal latch, good positioning and using clean hands when touching her breast. Resources used to facilitate learning were used from the [visual handouts/ tool/mom and baby guide]. Mother voiced understanding of the education shared, to call for assistance if the infant does not latch or if there is discomfort with . Reported to the Primary RN. 1440 A breast pump provided due to mother's request, she does have her own breast pump at home but wants to use the hospital pump while here. Instructions given on cleaning, care, usage, that there should be no pain, pumping schedule for milk production, collection, and storage of human milk. Patient was assessed for correct placement, flange size, to pump for comfort and nipple stretching/stimulation for adequate milk production every 3 hours (8 times in 24 hours) 1-2 times at night, she plans on pumping after each . Parents are encouraged to record the pumping schedule on the feeding sheet.?Mother voiced understanding of the education shared along with mom/baby guide and the pump measurement, flange fit handout for additional resource information. Reported to the Primary RN.
[2024-08-27] MEDS: IBUPROFEN 600 MG TABLET PO (00:32)
[2024-08-27] MEDS: DOCUSATE SODIUM 100 MG CAPSULE PO ×2 (00:32→17:00)
--- NOTE | 2024-08-27 02:46 | PC.NURSE ---
2129- assumed care of pt from Nicole TOVAR.
[2024-08-27 04:00] VITALS: BP 134/85; PULSE 83; RESP 16; TEMP 36.4; O2SAT 100
[2024-08-27 05:58] LABS: Hematocrit 34.8 % (37.0-47.0); Hemoglobin 11.4 g/dL (12.0-15.0)
--- NOTE | 2024-08-27 06:49 | P.PNOB_ITS ---
OB - PN: Subj Subjective Date/time seen: 08/27/24 06:49 Patient comments: no complaints and pain well controlled baby status: doing well and nursing well OB - PN: Obj Data Labs 08/27/24 05:26 Labs: Laboratory Results - last 24 hr 08/27/24 05:26 Hgb 11.4 L Hct 34.8 L OB - PN A/P Assessment and Plan (1) Term : Code(s): Z34.90 - Encounter for supervision of normal , unspecified, unspecified trimester Status: Acute Plan routine care Time Spent With Patient Time: Total time spent is greater than 50% in coordination of care (as documented) at patient's floor/unit and/or counseling patient: Review of Systems 2 Review of Systems: Pertinent positives per HPI. Patient denies any fever, chills, rash, headache, visual changes, dizziness, cough, runny nose, sore throat, shortness of breath, chest pain, palpitations, nausea, vomiting, diarrhea, constipation, abdominal pain, or any urinary issues. Exam 2 Const: General: cooperative, healthy appearing and comfortable Nutritional Appearance: average body habitus Orientation/consciousness: oriented to person, oriented to place and oriented to time Resp: Effort & Inspection: normal respiratory effort Cardio: Rate: regular rate Rhythm: regular rhythm Heart sounds: S1 normal heart sound present and S2 normal heart sound present GI: Inspection: normal to inspection (Gravid soft uterus) : External Female Exam: normal external appearance Speculum Exam - Vagina: normal appearance of the vagina Speculum Exam - Cervix: normal appearance of the cervix (ROM Plus is positive. FHTs reassuring)
[2024-08-27] MEDS: MULTIVIT/MIN/PREN/FOL AC/IRON TABLET 1 TAB PO (07:44)
[2024-08-27 07:55] VITALS: BP 119/82; PULSE 66; RESP 18; TEMP 36.9; O2SAT 100
[2024-08-27 08:00] VITALS: PULSE 66; RESP 18; O2SAT 100
--- NOTE | 2024-08-27 13:02 | WPDANLDPN2 ---
Anes-Prog Note L&D Date/Time: 08/27/24 13:02 Comfortable throughout: labor and delivery Neuraxial method: epidural Epidural/Spinal procedure site: clean & non-tender Neuro status: Neuro function grossly intact. Cardiovascular status: normal Respiratory status: normal Airway patency: baseline Mental status: baseline Post-Op hydration status: normal Vital Signs: Last Vital Signs Temp 36.9 C 08/27/24 07:55 Pulse 66 08/27/24 08:00 Resp 18 08/27/24 08:00 BP 119/82 08/27/24 07:55 Pulse Ox 100 08/27/24 08:00 O2 Del Method Room Air 08/27/24 08:00 Pain score (VAS): 1 I/O: Intake & Output 08/26/24 08/27/24 08/27/24 23:59 07:59 15:59 Intake Total 100 Balance 100 Post-procedural complaints: none Patient feedback: Patient satisfied with anesthetic care.
--- NOTE | 2024-08-27 14:01 | PC.NURSE ---
1245. Mother verbalizes she is able to independently latch infant with appropriate positioning and alignment. She denies any nipple discomfort and is responsively . is currently meeting outcomes for weight, output, jaundice, blood sugar and feeding frequencies of 8-12 times in 24 hours. Mom continues to do a combination of and pumping and bottle feeding with her formula of choice Kendamil. Mother declines any additional assistance or education at this time. Mother is encouraged to call for assistance if her infant doesn?t latch, pain with latching, questions or concerns. Mother voiced understanding of information shared along with the mom/baby guide for an additional resource. Reported to the Primary RN.
[2024-08-27 20:00] VITALS: BP 133/84; PULSE 62; RESP 18; TEMP 36.8; O2SAT 100
--- NOTE | 2024-08-28 06:23 | P.PNOB_ITS ---
OB - PN: Subj Subjective Date/time seen: 08/28/24 06:23 Patient comments: no complaints, pain well controlled and tolerating diet [place] baby status: doing well OB - PN: Obj Data Labs 08/27/24 05:26 OB - PN A/P Assessment and Plan (1) Premature rupture of membranes (PROM) at term with onset of labor after 24 hours, antepartum: Code(s): O42.12 - Full-term premature rupture of membranes, onset of labor more than 24 hours following rupture Status: Acute Plan home Time Spent With Patient Time: Total time spent is greater than 50% in coordination of care (as documented) at patient's floor/unit and/or counseling patient: Review of Systems 2 Review of Systems: Pertinent positives per HPI. Patient denies any fever, chills, rash, headache, visual changes, dizziness, cough, runny nose, sore throat, shortness of breath, chest pain, palpitations, nausea, vomiting, diarrhea, constipation, abdominal pain, or any urinary issues. Exam 2 Const: General: cooperative, healthy appearing and comfortable Nutritional Appearance: average body habitus Orientation/consciousness: oriented to person, oriented to place and oriented to time Resp: Effort & Inspection: normal respiratory effort Cardio: Rate: regular rate Rhythm: regular rhythm Heart sounds: S1 normal heart sound present and S2 normal heart sound present GI: Inspection: normal to inspection (Gravid soft uterus) : External Female Exam: normal external appearance Speculum Exam - Vagina: normal appearance of the vagina Speculum Exam - Cervix: normal appearance of the cervix (ROM Plus is positive. FHTs reassuring)
[2024-08-28 08:00] VITALS: BP 128/78; PULSE 64; RESP 16; TEMP 36.6; O2SAT 99
[2024-08-28] MEDS: MULTIVIT/MIN/PREN/FOL AC/IRON TABLET 1 TAB PO (09:43)
[2024-08-28] MEDS: DOCUSATE SODIUM 100 MG CAPSULE PO (09:43)
--- NOTE | 2024-08-28 11:34 | PC.NURSE ---
Patient was given the opportunity to view the discharge video Mother & Baby Care, The First Two Weeks and to ask questions. Patient declined viewing the video and has been given the mother/baby guide for home reference.
--- NOTE | 2024-08-28 15:35 | PC.NURSE ---
Mother verbalizes she is able to independently latch with appropriate positioning and alignment. She is supplementing with pumped breast milk and/or formula. is currently meeting outcomes for weight, output, jaundice, blood sugar and feeding frequencies of 8-12 times in 24 hours. Mother declines any additional assistance or education at this time. Mother is encouraged to call for assistance if her doesn?t latch, pain with latching, questions or concerns. Mother voiced understanding of information shared along with the mom/baby guide for an additional resource. Reported to the Primary RN.
[2024-08-28 16:07] VITALS: BP 136/79; PULSE 55; RESP 16; TEMP 36.4; O2SAT 100
[2024-08-30 13:53] VITALS: BP 136/72; PULSE 56; RESP 18; TEMP 37.2; O2SAT 100
== END 2024-08-28 17:50 | disposition home or self-care (01) | DRG 805 ==
LOC: ANHLDR 08-26 05:57 → ANHOB2 08-26 10:36
PROVIDERS: Admitting Provider Obstetrics & Gynecology; PCP Clinical Nurse Specialist; Visit Provider Obstetrics & Gynecology
DX: O42.013 Preterm premature rupture of membranes, onset of labor within 24 hours of rupture, third trimester (principal); O60.14X0 Preterm labor third trimester with preterm delivery third trimester, not applicable or unspecified; Z37.0 Single live birth; Z3A.35 35 weeks gestation of pregnancy; O24.420 Gestational diabetes mellitus in childbirth, diet controlled
CPT/HCPCS: 36415; 82948; 84112; 85014; 85018; 85025; 86593; 86703; 86850; 86900; 86901; 87081; A9270; G0432; J0290; J2590; J2795; J7120

== ENCOUNTER 2024-09-06 10:56 | Outpatient (CLI) | payer OTHER, SELFPAY ==
--- OUTSIDE RECORDS SUMMARY | 2024-09-06 11:02 | XMS_ITS | Patient Health Record ---
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.0) Active confirmed Problem 62460740 Irregular periods (N92.6) Active confirmed Plan Of Treatment Pending Test Test Name Order Date Pap Lb, rfx HPV all pth (19920522) 015 Pap IG, w/reflex to HPV HR DNA when ASC- U (392319) 02/08/2016 Insurance Providers Payer Name Payer Address Payer Phone Subscriber Number Group Number Insured Name Patient Relationship to Insured Coverage Start Date Coverage End Date [facility] [address] [address] [place] [address] [phone] [id number] Lauren Eastman Self - patient is the insured Medical (General) History Medical History History ICD Code diabetic Surgical History Surgery Date(Month/Year) ACL reconstruction 2006 Hospitalization History Reason Date(Month/Year) see above
--- OUTSIDE RECORDS SUMMARY | 2024-09-06 11:02 | XMS_ITS | Clinical Summary ---
Author Organization [facility] Care Team Providers Care Shaker Washer Name Role Phone Unavailable Primary Care Provider Unavailabl e Social History Tobacco Use Types Packs/Day Years Used Date Smoking Tobacco: Never Assessed Comments Unknown Sex and Gender Information Value Date Recorded Sex Assigned at Not on file Legal Sex Female 8:30 AM [employer] Gender Identity Not on file Sexual Orientation [...]
--- NOTE | 2024-09-06 11:05 | PC.NURSE ---
In- 1100 Out- 1200 Reason for visit: Concerns about milk supply and desires a weighted feed History: Lauren delivered vaginally at 35 weeks when her membranes ruptured spontaneously. Baby has been and supplementing with pumped milk or formula at each feeding. She is not taking any medications. She is able to pump about 2 ounces total when she expresses her full breasts. After feedings, she usually is only able to pump around 15mls. Lauren feels like overall feedings are going well. She has a history of lower milk supply with her first baby, which she attributes to a possible tongue tie and latch issues. She pumps about 2 times a day when she is able. She says that there are occasionally times when she doesn't breastfeed but just pumps and bottle feeds. Infant History: Tigre is a well appearing 11 day old infant. He is extremely sleepy today. Mom states that he is never this hard to awaken. She states that at half of his feedings he wakes and lets her know he is hungry. She has to wake him the other half of the time. He sometimes has one 4 hour stretch between feedings at night. At his family nurse practitioner's office today he was back at weight. Most feedings at breast are between 20-30 minutes and baby is feeding from both breasts at a feeding session. He then takes 1-2 ounces of pumped milk or formula to top off. He has lots of wets and stools. Observations: Luaren does a great job positioning baby and holding her breast. They work best in football hold. Baby is extremely sleepy today. Aside from a few latches with minimal suckling, we were unable to achieve a full . Mom is agreeable to rescheduling for later in the week to try a weighted feeding again. weight: 6 # 9 Last weight: 6 # 9 (pedi's office today) Pre-feed weight: 3049 Post-feed weight: none obtained due to not being able to feed baby at this time Plan of Care: Lauren is encouraged to continue with hands on pumping, adding in an extra 1 or 2 pumps per day when able. This may help boost her supply. We also discussed that she is not quite two weeks and her body is still working to create her mature supply. Patient agrees to pump more when able, continuing to use compression of her breast during pumping and feeding. Follow up plans: Lauren would like to reschedule for later this week so that we can attempt another weighted feeding. She is scheduled to come in at 1300 on September 09.
== END 2024-09-06 10:57 | disposition home or self-care (01) ==
LOC: ANHOBOP 10:58
PROVIDERS: Visit Provider Pediatrics
DX: Z39.1 Encounter for care and examination of lactating mother (principal)
CPT/HCPCS: 99202; G0463